=== PATIENT | male | born 1995 | race Caucasian/White ===

== ENCOUNTER 2018-03-30 08:36 | Emergency (ER) | END 2018-03-30 12:25 | disposition home or self-care (01) ==

== ENCOUNTER 2018-10-17 10:53 | Emergency (ER) | END 2018-10-17 12:48 | disposition home or self-care (01) ==

== ENCOUNTER 2019-05-22 19:35 | Emergency (ER) | payer MEDICAID ==
[~2019-05-22] VITALS: Ht 180.3 cm; Wt 76.8 kg
[~2019-05-22 19:35] MED LIST: ALBU18HF INHALATION; ALBU8.5H8 INH; BENZ200C68 PO; CEPH-443 PO; MED4DP PO; PRED20TA PO
[2019-05-22 19:38] VITALS: Ht 180.3 cm; Wt 76.8 kg
[2019-05-22] MEDS ORDERED: ALBUTEROL 0.5% (NEB) 2.5 MG/0.5 ML AMP INH STA (20:02)
[2019-05-22] MEDS ORDERED: DEXAMETHASONE 10 MG/ML 1 ML INJ IM STA (20:02)
--- NOTE | 2019-05-22 20:10 | ERD ---
ER Documentation Chief Complaint Chief Complaint HX OF ASTHMA C/O SOB. RAN OUT OF HIS INHALER HPI This is a 24-year-old male with past medical history of asthma presenting to the emergency department with complaints of intermittent shortness of breath for the past 2 days. He has been using his Ventolin inhaler at home with relief however he ran out of it yesterday. He is also had productive cough. He denies any fevers, chills, sore throat, nasal congestion, or other symptoms at this time. Symptoms are moderate to severe. ROS All systems reviewed and are negative except as per history of present illness. Medications Home Meds Active Scripts Prednisone* (Prednisone*) 20 Mg Tab, 40 MG PO DAILY for 4 Days, TAB Prov:CALLIE ROCA PA-C 10/17/18 Albuterol Sulfate* (Proair HFA*) 8.5 Gm Hfa.aer.ad, 2 PUFF INH Q4, #1 INHALER Prov:CALLIE ROCA PA-C 10/17/18 Cephalexin* (Keflex*) 500 Mg Capsule, 500 MG PO QID for 7 Days, CAP Prov:CALLIE ROCA PA-C 03/30/18 Allergies Allergies: Coded Allergies: No Known Allergy (Unverified , 10/17/18) PMhx/Soc Medical and Surgical Hx: pt denies Surgical Hx History of Surgery: No Anesthesia Reaction: No Hx Neurological Disorder: No Hx Respiratory Disorders: Yes (ASTHMA) Hx Cardiac Disorders: No Hx Psychiatric Problems: No Hx Miscellaneous Medical Probl: No Hx Alcohol Use: No Hx Substance Use: No Hx Tobacco Use: No Smoking Status: Never smoker FmHx Family History: No diabetes Physical Exam Vitals Vital Signs Date Temp Pulse Resp B/P (MAP) Pulse Ox O2 O2 Flow FiO2 Time Delivery Rate 05/22/19 98.1 107 20 145/89 94 19:38 (107) Physical Exam Const: No acute distress Head: Atraumatic Eyes: Normal Conjunctiva ENT: Normal External Ears, Nose and Mouth. Neck: Full range of motion. No meningismus. Resp: Scattered wheezing. No respiratory distress. No crackles. Cardio: Regular rate and rhythm, no murmurs Skin: No petechiae or rashes Back: No midline or flank tenderness Ext: No cyanosis, or edema Neur: Awake and alert Psych: Normal Mood and Affect Results 24 hrs Current Medications Medications Dose Sig/Alon Start Time Status Last (Trade) Ordered Route PRN Stop Time Admin Dose Reason Admin Albuterol 10 mg ONCE STAT 05/22/19 DC (Proventil INH 20:02 05/22/19 0.5% (Neb)) 20:04 10 mg ONCE STAT 05/22/19 DC 05/22/19 Dexamethasone IM 20:02 05/22/19 20:07 (Decadron) 20:04 Procedures/MDM 24-year-old male presents emergency department with acute asthma exacerbation. He has scattered wheezing on examination but no signs of respiratory distress. Low suspicion for pneumonia, status asthmaticus, cardiopulmonary collapse, or other emergent pathology. Patient was administered albuterol breathing treatment and IM Decadron with significant improvement of his symptoms. Patient's respiratory status has stabilized while in the department and is appropriate for outpatient work up. Exam and work up not consistent w/ impending respiratory failure or cardiovascular collapse. Patient's blood pressure was elevated (>120/80) but appears stable without evidence of hypertension emergency or urgency. The patient is to follow-up and pursue outpatient monitoring and therapy with their primary care physician within 1 week and return immediately if they have any new, worsening, or concerning symptoms. Departure Diagnosis: Primary Impression: Asthma with acute exacerbation Asthma severity: unspecified severity Asthma persistence: unspecified Qualified Codes: J45.901 - Unspecified asthma with (acute) exacerbation Condition: Fair Patient Instructions: Asthma, Acute (Adult) Additional Instructions: Muchas los por [facility] para olivera servicio. Esperamos que en olivera visita a la nurys de emergencia olivera problema medico haya sido solucionado y que se sienta mucho mejor. Para estar seguros que olivera mejoria sigue en proceso, le pedimos el favor de hacer iker torito de seguimiento medico con olivera doctor primario en los proximos 2-4 dougherty. Lleve con usted estos documentos y las medicinas recetadas. Si hilton sintomas empeoran, NO SE ESPERE, por favor regrese a nurys de emergencia INMEDIATAMENTE. En magalys que usted no tenga un mdico de atencin primaria: Llame al mdico o clnica comunitaria de referencia que aparece abajo niru las horas de consultorio para hacer iker torito para que le vean. CLINICAS: [facility] [phone] [facility] [phone] [facility] [phone] [place] [id number] [phone] [place] [id number] [phone] [facility]. [phone] PATY GORMAN PA-C May 22, 2019 20:10
[2019-05-22 21:34] VITALS: BP 130/82; PULSE 101; RESP 18
== END 2019-05-22 21:35 | disposition home or self-care (01) ==
LOC: FTE 19:35
DX: J45.901 Unspecified asthma with (acute) exacerbation (principal)
CPT/HCPCS: 94644; J1100; Z7502; Z7610